=== PATIENT | male | born 1955 | race Caucasian/White ===

== ENCOUNTER 2019-07-16 19:23 | Emergency (ER) | payer MEDICARE ==
[~2019-07-16] VITALS: Ht 182.9 cm; Wt 100.0 kg
[2019-07-16 19:30] VITALS: BP 156/96
[2019-07-16] MEDS ORDERED: proparacaine 0.5% ophthalmic drops 15ml EACHEYE ONE (19:55)
[2019-07-16] MEDS ORDERED: ciprofloxacin 0.3% 2.5ml ophthalmic solution RIGHTEYE ONE (20:20)
== END 2019-07-16 20:41 | disposition home or self-care (01) ==
LOC: ER 19:24
DX: S05.01XA Injury of conjunctiva and corneal abrasion without foreign body, right eye, initial encounter (principal); H57.12 Ocular pain, left eye; Z98.890 Other specified postprocedural states; X58.XXXA Exposure to other specified factors, initial encounter; Y93.89 Activity, other specified; Y92.89 Other specified places as the place of occurrence of the external cause; Y99.8 Other external cause status
CPT/HCPCS: 99283